=== PATIENT | female | born 1985 | race African-American/Black ===

== ENCOUNTER 2022-10-30 20:11 | Emergency (ER) | payer OTHER ==
[~2022-10-30] VITALS: Ht 180.3 cm; Wt 151.0 kg
[2022-10-30 20:18] VITALS: BP 121/73
[2022-10-30] MEDS ORDERED: LIDOCAINE 1%/EPI 1:200,000/PF 30 ML VIAL PERC ONE (21:30)
[2022-10-30] MEDS ORDERED: POVIDONE-IODINE 10% 15 ML SOLUTION UD TP ONE (21:30)
== END 2022-10-30 22:56 | disposition left against medical advice (07) ==
LOC: EMS 20:11
DX: Z48.02 Encounter for removal of sutures (principal); I10 Essential (primary) hypertension; F12.90 Cannabis use, unspecified, uncomplicated; Z90.49 Acquired absence of other specified parts of digestive tract; Z98.890 Other specified postprocedural states
CPT/HCPCS: 99281; J3490